=== PATIENT | male | born 1965 | race Caucasian/White ===

== ENCOUNTER 2016-08-25 23:06 | Emergency (ER) | payer BC ==
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
[2016-08-25 23:54] LABS: CHLORIDE,CL 96 mmol/L (101-111); SODIUM,NA 134 mmol/L (135-145)
[2016-08-25] MEDS ORDERED: Potassium Chloride 10 MEQ in Premix Bag 1 BAG IV ONE (23:57)
[2016-08-25] MEDS ORDERED: Sodium Chloride 0.9% 1,000 ML IV ONE (23:59)
[2016-08-26] MEDS ORDERED: Potassium Chloride 10 MEQ Tab.ER PO ONE
[2016-08-26] MEDS ORDERED: Acetaminophen 325 MG Tab PO ONE (00:11)
[2016-08-26] MEDS ORDERED: Azithromycin 250 MG Tab PO ONE (01:09)
[2016-08-26 02:18] VITALS: BP 126/87
--- NOTE | 2016-09-16 14:43 | EKG ---
08/25/2016 - JO ANN PLUNKETT - EKG per my reading from 08/25/2016, shows sinus rhythm at a rate of 94. [facility] /[id number]
== END 2016-08-26 01:49 | disposition home or self-care (01) ==
LOC: DL.ED 23:06
DX: R07.89 Other chest pain (principal); E87.6 Hypokalemia; H65.02 Acute serous otitis media, left ear; E78.00 Pure hypercholesterolemia, unspecified; I10 Essential (primary) hypertension; K21.9 Gastro-esophageal reflux disease without esophagitis; M19.90 Unspecified osteoarthritis, unspecified site; Z98.890 Other specified postprocedural states; Z88.0 Allergy status to penicillin; Z79.82 Long term (current) use of aspirin; Z79.899 Other long term (current) drug therapy
CPT/HCPCS: 36415; 80053; 84484; 85025; 93005; 96360; 99285; A9270; J3480; J7030